=== PATIENT | female | born 1990 | race African-American/Black ===

== ENCOUNTER 2016-12-22 19:08 | Emergency (ER) | payer SELFPAY ==
[~2016-12-22] VITALS: Ht 162.6 cm; Wt 54.4 kg
[2016-12-22] VITALS (16 sets, daily range): BP systolic 104–136; BP diastolic 57–99
[2016-12-22] MEDS ORDERED: Haloperidol 5mg/ml Inj IM ONE (19:30)
[2016-12-22 20:28] LABS: APPEARANCE,URINE CLEAR; KETONES,URINE 1+ (NEGATIVE); LEUKOCYTE ESTERASE ,URINE 1+ (NEGATIVE); NITRITE,URINE NEGATIVE (NEGATIVE); PH,URINE 5 (4.5-8.0); PROTEIN,URINE 1+ (NEGATIVE); UROBILINOGEN,URINE 4 MG/DL (0.0-1.0)
--- NOTE | 2016-12-22 20:42 | Emergency Room Report ---
History of Present Illness General Chief Complaint: Behavioral Complaint Source: Patient (ROSSY AGUIAR M.D.) Present Illness HPI 28-year-old unidentified female brought to ED for evaluation. Patient is handcuffed by [employer]. Per EMS patient was in a grocery store throwing items and screaming. Patient was speaking nonsensically and talking to herself. Patient required restraints area patient is unable to provide any additional history at this time. No signs of trauma. Unclear whether patient has psychiatric history or is under the influence of drugs. No other aggravating factors. No other associated symptom (ROSSY AGUIAR M.D.) Allergies: Coded Allergies: UNABLE TO ASSESS (Unverified , 12/22/16) Patient History Past Medical History: none Past Surgical History: none Pertinent Family History: none Social History: Denies: alcohol use, drug use, smoking Last Menstrual Period: ukn Now: No - ukn Immunizations: UTD Reviewed Nursing Documentation: PMH: Agreed, PSxH: Agreed (ROSSY AGUIAR M.D.) Nursing Documentation-PMH Past Medical History Deferred: Pt Cognitively Impaired (ROSSY AGUIAR M.D.) Review of Systems All Other Systems: negative except mentioned in HPI (ROSSY AGUIAR M.D.) Physical Exam Vital Signs Date Time Temp Pulse Resp B/P Pulse Ox O2 Delivery O2 Flow Rate FiO2 12/22/16 19:06 98.2 78 16 112/70 99 Room Air Sp02 EP Interpretation: reviewed, normal General Appearance: no apparent distress, alert, GCS 15, non-toxic Head: normocephalic Eyes: bilateral eye PERRL, bilateral eye normal inspection ENT: normal ENT inspection Neck: normal inspection Respiratory: chest non-tender, lungs clear, normal breath sounds, speaking full sentences Cardiovascular #1: regular rate, rhythm, no edema Gastrointestinal: normal bowel sounds, non tender, soft, non-distended, no guarding, no rebound Rectal: deferred Genitourinary: no CVA tenderness Musculoskeletal: normal inspection Neurologic: other - disoriented Psychiatric: other - speaking to herself Skin: normal inspection Lymphatic: normal inspection (ROSSY AGUIAR M.D.) Medical Decision Making Diagnostic Impression: Primary Impression: Polysubstance abuse Additional Impression: Behavior change due to substance use ER Course Received signout from Dr Aguiar to re-eval in AM Patient's Utox+ for amphetamins and MJ Required sedation at shift change Slept throughout my entire shift When awoke, was more calm cooperative Endorses "hearing voices" immediately when waking up. However she does not elaborate despite repeated questioning attempts and seems more interested in sleeping But denies SI, HI Likely substance abuse contributing to behavior change that brought patient to ED initially Will DC (JANNETTE BAKER M.D.) Last Vital Signs Date Time Temp Pulse Resp B/P Pulse Ox O2 Delivery O2 Flow Rate FiO2 12/22/16 19:42 81 19 100 Room Air 12/22/16 19:22 98.3 136/76 (ROSSY AGUIAR M.D.) Status: improved (JANNETTE BAKER M.D.) Disposition: HOME, SELF-CARE ROSSY AGUIAR M.D. Dec 22, 2016 20:42 JANNETTE BAKER M.D. Dec 23, 2016 05:29
[2016-12-22 20:43] LABS: BASOPHILS % (AUTO) 1.5 % (0.0-2.0); EOSINOPHILS % (AUTO) 3.6 % (0.0-3.0); LYMPHOCYTES % (AUTO) 39.2 % (20.0-45.0); MEAN CORPUSCULAR HEMOGLOBIN 31.1 PG (27.0-31.0); MEAN CORPUSCULAR HGB CONC 34.9 G/DL (32.0-36.0); MEAN CORPUSCULAR VOLUME 89 FL (80-99); MEAN PLATELET VOLUME 7.9 FL (6.5-10.1); MONOCYTES % (AUTO) 7.4 % (1.0-10.0); NEUTROPHILS % (AUTO) 48.3 % (45.0-75.0); PLATELET COUNT 288 K/UL (150-450); RED BLOOD COUNT 4.05 M/UL (4.20-5.40); RED CELL DISTRIBUTION WIDTH 11.8 % (11.6-14.8); WHITE BLOOD COUNT 6.4 K/UL (4.8-10.8)
[2016-12-22 20:44] LABS: BACTERIA,URINE FEW /HPF; RBC,URINE 0-2 /HPF (0 - 2); SQUAMOUS EPITHELIAL CELL,UR FEW /LPF (NONE/OCC); WBC,URINE 0-2 /HPF (0 - 2)
[2016-12-22 20:45] LABS: MUCUS,URINE MANY /LPF (NONE/OCC)
[2016-12-22 21:21] LABS: ACETAMINOPHEN < 10 ug/mL (10-30); ALANINE AMINOTRANSFERASE 17 U/L (3-33); ALBUMIN/GLOBULIN RATIO 1.5 (1.0-2.7); ALCOHOL < 10 mg/dL; ANION GAP 11 (5-15); ASPARTATE AMINO TRANSFERASE 30 U/L (5-40); CALCIUM 8.9 mg/dL (8.6-10.2); CARBON DIOXIDE 26 mEQ/L (20-30); CHLORIDE 102 mEQ/L (98-107); GLOMERULAR FILTRATION RATE > 60 mL/min (>60); HEMOLYSIS 7; POTASSIUM 3.3 mEQ/L (3.4-4.9); SODIUM 139 mEQ/L (135-145); TOTAL PROTEIN 6.8 g/dL (6.6-8.7)
[2016-12-22] MEDS ORDERED: DiphenhydrAMINE 50mg/ml Inj IVP ONE (22:00)
[2016-12-22] MEDS ORDERED: LORazepam Inj 2mg/ml 1ml IV ONE (22:00)
[2016-12-23 06:26] VITALS: BP 119/69
[2016-12-23 06:27] VITALS: BP 119/69
== END 2016-12-23 06:28 | disposition home or self-care (01) ==
LOC: EDBD 19:08 → EMR 19:39 → EDBD 19:39 → EMR 12-23 06:28
DX: F19.10 Other psychoactive substance abuse, uncomplicated (principal)
CPT/HCPCS: 36415; 80053; 80300; 81003; 81025; 85025; 96372; 96374; 96375; 99284; G0480; J1200; J1630; 80329